=== PATIENT | female | born 1960 | race Caucasian/White ===

== ENCOUNTER 2018-05-23 01:40 | Emergency (ER) | payer OTHER ==
[2018-05-23] MEDS ORDERED: PROCHLORPERAZINE EDISYLATE 5 MG/ML SOL IV ONE (02:06)
[2018-05-23] MEDS ORDERED: KETOROLAC TROMETHAMINE 30 MG/ML SOL IV ONE (02:07)
[2018-05-23] MEDS ORDERED: PANTOPRAZOLE SODIUM 40 MG/10 ML PDS IV ONE (02:09)
[2018-05-23] MEDS ORDERED: KETOROLAC TROMETHAMINE 30 MG/ML SOL ONE (02:13)
[2018-05-23] MEDS ORDERED: SODIUM CHLORIDE 0.9% 1000ML 1,000 ML IV SCH (02:15)
[2018-05-23] MEDS ORDERED: PANTOPRAZOLE SODIUM 40 MG/10 ML PDS ONE (02:19)
[2018-05-23] MEDS ORDERED: PROCHLORPERAZINE EDISYLATE 5 MG/ML SOL ONE (02:22)
[2018-05-23 02:49] LABS: ALBUMIN 3.4 gm/dl (3.4-5.0); BILIRUBIN,TOTAL 0.5 mg/dl (0.2-1.0); CALCIUM 8.4 mg/dl (8.5-10.1); CARBON DIOXIDE 28.2 mEq/L (21-32); CREATININE 0.88 mg/dl (0.60-1.00); TOTAL PROTEIN 6.8 gm/dl (6.4-8.2)
[2018-05-23 02:50] LABS: BASOPHILS % (AUTO) 0 % (0-3); EOSINOPHILS % (AUTO) 2 % (0-9); HEMATOCRIT 40 % (35-47); HEMOGLOBIN 12.9 gm/dl (12.0-15.5); MEAN CORPUSCULAR HEMOGLOBIN 26.4 pg (27.0-32.0); MEAN CORPUSCULAR HGB CONC 32.2 gm/dl (32.0-36.0); MEAN CORPUSCULAR VOLUME 82 fL (81-99); MONOCYTES % (AUTO) 2.7 % (0-12); NEUTROPHILS % (AUTO) 79.4 % (37-80)
[2018-05-23] MEDS ORDERED: ONDANSETRON HCL 4 MG/2 ML SOL IV ONE (03:39)
[2018-05-23] MEDS ORDERED: ONDANSETRON HCL 4 MG/2 ML SOL ONE (03:43)
[2018-05-23 03:55] LABS: APPEARANCE,URINE Clear; BILIRUBIN,URINE NEGATIVE (NEGATIVE); COLOR,URINE Yellow; GLUCOSE, URINE (UA) NEGATIVE (NEGATIVE); KETONES,URINE NEGATIVE (NEGATIVE); LEUKOCYTE ESTERASE ,URINE NEGATIVE (NEGATIVE); NITRATE,URINE NEGATIVE (NEGATIVE); OCCULT BLOOD,URINE 1+ (NEG-TRACE); UROBILINOGEN,URINE 0.2 (0.2-1.0 EU)
[2018-05-23 04:12] LABS: BACTERIA NEGATIVE (< 1+); CRYSTALS NEGATIVE (0-3 AVE/HPF); RBC,URINE 0-3 (0-3AV/HPF); WBC,URINE 0-2 (0-5AV/HPF)
[2018-05-23 04:24] VITALS: BP 161/103; PULSE 91; RESP 18; O2SAT 98
[2018-05-23] MEDS ORDERED: ACETAMINOPHEN 325 MG PO ONE (04:25)
[2018-05-23] MEDS ORDERED: ACETAMINOPHEN 325 MG ONE (04:31)
[2018-05-23] MEDS ORDERED: HYDROCORTISONE SODIUM SUCCIN 100 MG PDS IV ONE (05:07)
[2018-05-23] MEDS ORDERED: HYDROCORTISONE SODIUM SUCCIN 100 MG PDS INJ ONE (05:14)
[2018-05-23] MEDS ORDERED: HYDROCORTISONE SODIUM SUCCIN 100 MG PDS ONE (05:18)
[2018-05-23 05:52] VITALS: TEMP 99.8
== END 2018-05-23 06:25 | disposition home or self-care (01) | DRG 392 ==
LOC: ED 01:40
DX: K52.9 Noninfective gastroenteritis and colitis, unspecified (principal)
CPT/HCPCS: 36415; 74177; 80053; 81001; 82150; 85025; 99284; J0780; J1720; J1885; J2405; Q9967

== ENCOUNTER 2018-05-30 14:56 | Emergency (ER) | payer OTHER ==
[2018-05-30] MEDS ORDERED: LIDOCAINE HCL 1% MDV 50 ML SOL SC ONE (15:16)
[2018-05-30] MEDS ORDERED: LIDOCAINE HCL 1% MPF 30 SOL ONE (15:18)
[2018-05-30] MEDS ORDERED: BACITRACIN 500 U/GM OIN TOP ONE ×3 (15:37→15:39)
[2018-05-30 15:50] VITALS: RESP 18; TEMP 97.2
[2018-05-30 16:11] VITALS: BP 126/79; PULSE 58; O2SAT 97
== END 2018-05-30 16:07 | disposition home or self-care (01) | DRG 605 ==
LOC: ED 14:56
DX: S61.012A Laceration without foreign body of left thumb without damage to nail, initial encounter (principal)
CPT/HCPCS: 12001; 99283; A9270-GY; J2001